=== PATIENT | female | born 1930 | race Caucasian/White ===

== ENCOUNTER 2017-07-14 20:02 | Emergency (ER) | payer BC ==
[~2017-07-14 20:02] MED LIST: ACET500CAP PO; ATV.5 PO; BAZA CREAM TOP; CALCIUM OTC PO; CALCIUM PO; CALTRA600D PO; CALTRAT600 PO; CEFT5 PO; CHEMO IV; CHEMOTHERAPY IV; CIP5 PO; CLEOCIN300 MG PO; CORDARONE PO; COREG12 PO; COREG25 PO; CYANO1000T PO; DURICEF PO; ELIQUIS 2.5 MG2.5 MG PO; FERRO SEQUELS PO; FERROUS SULF325 M1 PO; FLORASTOR250 MG PO; FOLIC ACID OTC PO; FOLIC ACID PO; FOLIC PO; IMDUR30 PO; IRON OTC PO; ISOSORB DIN30 MG PO; K500 PO; L20 PO; L40 PO; LEVAQUIN750 MG PO; LOM PO; LOP50 PO; MELA3 PO; MOBIC15 MG PO; MOBIC7.5 PO; MULTIPLE VIT PO; MULTIVITAMI1 PO; NITROSTAT0.4 MG SL; NORV10 PO; NORV5 PO; NTG150 SL; OS500+D PO; OTC VITAMIN E PO; PLAVIX PO; PRILO PO; PRILOSEC40 MG PO; PRIN10 PO; PRIN20 PO; RX CREAM TOP; SENTAB PO; T PO; TRAVATAN EYE DROP OPH; TRAVATAN EYE DROPS OPH; TRAVATAN OPH; TRAVATAN Z OPH; TRAVATAN Z0.004 % OPH; TRAVOPROST OPH; ULTRAM50 PO; VIDAZA100 MG IJ; VIDAZA100 MG IV; VIT B-SIX 50 MG50 MG PO; VITAMIN B PO; VITAMIN B-6 OTC PO; VITAMIN B-6 PO; VITAMIN B-625 MG OR; VITAMIN B-625 MG PO; VITAMIN B6 PO; VITAMIN E CAPSULE PO; VITAMIN E OTC PO; VITAMIN E PO; VITE PO; XALAT OPH; ZANAFLEX2 MG PO; ZESTRIL10 MG PO; ZOFRAN4 PO; [UNRECOGNIZED DRUG - OTHER]; [UNRECOGNIZED DRUG - OTHER]; [UNRECOGNIZED DRUG - OTHER] PO; [UNRECOGNIZED DRUG - OTHER] PO; [UNRECOGNIZED DRUG - OTHER] PO; [UNRECOGNIZED DRUG - REMARK]
[2017-07-14 21:04] LABS: BASOPHILS 0.5 %; BASOPHILS ABSOLUTE 0.01 10/3/uL (0.0-0.16); EOSINOPHILS 2.3 %; EOSINOPHILS ABSOLUTE 0.05 10/3/uL (0.0-0.53); IMMATURE GRANULOCYTES 0.5 %; IMMATURE GRANULOCYTES ABSOLUTE 0.01 10/3/uL (0.0-0.11); LYMPHOCYTES 45.8 %; LYMPHOCYTES ABSOLUTE 0.99 10/3/uL (0.67-4.30); MEAN CORPUS HGB CONC 32.9 g/dL (32.0-36.0); MEAN CORPUSCULAR HEMOGLOB 30.4 pg (26.0-34.0); MEAN CORPUSCULAR VOLUME 92.5 fL (80-100); MEAN PLATELET VOLUME 10.9 fL (9.2-13.0); MONOCYTES 3.2 %; MONOCYTES ABSOLUTE 0.07 10/3/uL (0.21-1.20); NEUTROPHILS 47.7 %; NEUTROPHILS ABSOLUTE 1.03 10/3/uL (2.02-8.40); RBC DISTRIBUTION WIDTH 18.5 % (12.0-16.0)
[2017-07-14 21:06] LABS: ER CBC TAT 0 Hrs 08 Mins; HEMATOCRIT 29.8 % (36.0-48.0); HEMOGLOBIN 9.8 g/dL (12.0-16.0); PLATELET COUNT 45 10/3/uL (150-400); RED CELL COUNT 3.22 10/6/uL (4.0-5.6); WHITE BLOOD CELLS 2.2 10/3/uL (4.5-10.5)
[2017-07-14 21:09] LABS: MANUAL DIFF NO %
[2017-07-14 21:16] LABS: A/G RATIO 1.1 (0.7-1.9); ALBUMIN 3.5 G/DL (3.5-5.0); CALCIUM, SERUM 8.6 MG/DL (8.5-10.4); CHLORIDE, SERUM 99 MMOL/L (96-112); CO2 (CARBON DIOXIDE) 32 MMOL/L (24-34); CREATININE 0.95 MG/DL (0.55-1.02); GFR AFRICAN AMERICAN 62 ML/MIN (>=60); GFR NON AFRICAN AMERICAN 53 ML/MIN (>=60); GLOBULIN 3.3 G/DL (2.5-4.1); SGOT(AST) 21 U/L (5-40); SGPT(ALT) 20 U/L (5-65); SODIUM, SERUM 138 MMOL/L (135-148); TOTAL BILIRUBIN 0.5 MG/DL (0-1.2); TOTAL PROTEIN 6.8 G/DL (6.0-8.5)
[2017-07-14 21:17] LABS: ALKALINE PHOSPHATASE 87 U/L (45-117); BUN (BLOOD UREA NITROGEN) 18 MG/DL (6-23); GLUCOSE, SERUM 124 MG/DL (60-99)
[2017-07-14 21:33] LABS: ANISOCYTOSIS 1+ (5-10/OIF) (0-5/OIF)
== END 2017-07-15 00:13 | disposition home or self-care (01) ==
LOC: ER 20:02
PROVIDERS: Emergency Medicine
DX: D61.818 Other pancytopenia (principal); I50.9 Heart failure, unspecified; I48.91 Unspecified atrial fibrillation; K21.9 Gastro-esophageal reflux disease without esophagitis; Z88.0 Allergy status to penicillin; Z88.1 Allergy status to other antibiotic agents; Z88.2 Allergy status to sulfonamides; Z88.4 Allergy status to anesthetic agent; Z88.5 Allergy status to narcotic agent; Z88.6 Allergy status to analgesic agent; Z88.8 Allergy status to other drugs, medicaments and biological substances; Z79.899 Other long term (current) drug therapy
CPT/HCPCS: 36415; 80053; 85025; 86850; 86900; 86901; 99283